=== PATIENT | male | born 1965 | race Hispanic/Latino ===

== ENCOUNTER 2017-06-14 11:49 | Emergency (ER) | payer MEDICARE ==
[2017-06-14 17:10] LABS: Basophils % (Auto) 0.2 % (0.0-1.8); Hematocrit 46.5 % (35.5-45.6); Hemoglobin 15.3 gm/dl (11.8-15.2); Lymphocytes # (Auto) 1.3 K/mm3 (1.2-5.4); Lymphocytes % (Auto) 10.1 % (13.4-35.0); Mean Corpuscular HGB Conc 33 % (32-34); Mean Corpuscular Hemoglobin 29 pg (28-32); Mean Corpuscular Volume 89 fl (84-94); Monocytes # (Auto) 0.9 K/mm3 (0.0-0.8); Monocytes % (Auto) 6.7 % (0.0-7.3); Platelet Count 282 K/mm3 (140-440); Red Cell Distribution Width 14.1 % (13.2-15.2)
[2017-06-14] MEDS ORDERED: SUBLIMAZE IV ONE ×2 (17:20→21:16)
[2017-06-14] MEDS ORDERED: ZOFRAN IV ONE ×2 (17:20→21:16)
[2017-06-14] MEDS ORDERED: NACL 0.9% 1000 ML 1,000 ML IV ONE (17:20)
[2017-06-14 17:24] LABS: BUN/Creatinine Ratio 13; Blood Urea Nitrogen 14 mg/dL (9-20); Calcium 9.2 mg/dL (8.4-10.2); Hemolysis Index 55
[2017-06-14 17:26] LABS: Alanine Aminotransferase 37 units/L (7-56); Albumin 4.5 g/dL (3.9-5); Lipase 20 units/L (13-60)
[2017-06-14 17:32] LABS: Bilirubin,Direct < 0.2 mg/dL (0-0.2)
[2017-06-14] MEDS ORDERED: MOTRIN PO ONE (17:48)
[2017-06-14 19:45] VITALS: BP 136/88
--- NOTE | 2017-06-14 20:37 | Cat Scan Report ---
FINAL REPORT EXAM: CT ABDOMEN PELVIS W CON HISTORY: abdominal pain TECHNIQUE: Axial images were performed from the lung bases to the pubic symphysis following IV contrast administration. Multiplanar reformats are performed on the acquisition scanner. Comparison: 10/07/2015 FINDINGS: There is mild bilateral basal atelectasis. There is a large paraumbilical hernia containing fat, previously measured up to 8.5 centimeters transversely. It currently now measures up to 12 centimeters transversely. Liver is mildly diffusely hypodense. There is normal enhancement and appearance of the spleen, pancreas, bilateral adrenal glands, and left kidney. There is mild bilateral right perinephric stranding and fullness of the right renal pelvis and ureter to the level of a 2.3 millimeter distal ureteral stone just proximal to the UVJ. Stomach is decompressed. There is no significant mesenteric or atherosclerotic aortic occlusive disease. There is a left posterior renal cortical exophytic cyst measuring up to 8 centimeters which appears simple. The colon is decompressed. The appendix is surgically absent. There is mild stranding of the anti mesenteric transverse colon margin deep to the hernia due to the herniation of the anti mesenteric margin fat. There is no abnormal obstructed appearing small bowel loop. Urinary bladder is minimally distended. Prostate is not enlarged. There is lower thoracic degenerative spondylosis. Delayed phase images demonstrate ill-defined right perinephric stranding without excretion of contrast. Normal excretion of left sided contrast. IMPRESSION: 2.3 millimeter distal right ureteral stone causing mild right hydroureteronephrosis and mild delay in contrast excretion. No definite forniceal rupture. Mild perinephric stranding. Mild stranding of the anti mesenteric transverse colon margin deep to the enlarging anterior abdominal wall/periumbilical 12.1 centimeter hernia due to the herniation of the anti mesenteric margin fat into the hernia. No definite bowel wall ischemia. Mild engorged vessels within the hernia sac.
--- NOTE | 2017-06-14 21:15 | Emergency Department Report ---
HPI - General Chief Complaint: Abdominal Pain Time Seen by Provider: 06/14/17 16:58 - HPI HPI: The patient is a 51-year-old male presents for evaluation of abdominal pain. The patient has a history of chronic hernia, and whom appears for evaluation of recurrence of abdominal pain. He reports severe mid abdominal pain for the past 5 hours since awakening this morning, 10/10 in severity, throbbing in quality, exacerbated with vomiting. He also reports associated nausea and one to 2 episodes of nonbilious, nonbloody vomiting. The patient denies fever, chills, night sweats, diarrhea, blood in the stool, dark tarry stool, dysuria, hematuria, flank pain, genital discharge, inability to pass flatus. ED Past Medical Hx - Past Medical History Hx Hypertension: Yes Hx Psychiatric Treatment: Yes - Social History Smoking Status: Never Smoker Substance Use Type: None - Medications Home Medications: Home Medications Medication Instructions Recorded Confirmed Last Taken Type Aspirin 81 mg PO DAILY 10/07/15 10/07/15 10/07/15 08:00 History Lisinopril [Zestril TAB] 20 mg PO QAM 10/07/15 10/07/15 10/07/15 08:00 History RisperDAL 1 mg PO QAM 10/07/15 10/07/15 10/07/15 08:00 History RisperDAL 2 mg PO QHS 10/07/15 10/07/15 10/06/15 21:00 History Wellbutrin 150 mg PO QAM 10/07/15 10/07/15 10/07/15 08:00 History cloNIDine 0.2 mg PO BID 10/07/15 10/07/15 10/07/15 08:00 History HYDROcodone/APAP 7.5-325 [[place] 1 each PO Q8HR PRN #14 tablet 06/14/17 Unknown Rx 7.5-325 mg TAB] Ondansetron [Zofran TAB] 4 mg PO Q8HR PRN #20 tablet 06/14/17 Unknown Rx ED Review of Systems ROS: Stated complaint: ABDOMINAL PAIN Other details as noted in HPI Constitutional: denies: fever ENT: denies: throat or neck pain Respiratory: denies: cough, shortness of breath Cardiovascular: denies: chest pain Endocrine: denies unexplained weight loss or gain Gastrointestinal: reports: abdominal pain, nausea Genitourinary: denies: dysuria Musculoskeletal: denies: leg swelling Skin: denies: rash Neurological: denies: headache Hematological/Lymphatic: denies: easy bleeding or easy bruising Psych: denies sadness or hopelessness Physical Exam - Physical Exam Vital Signs: Vital Signs 06/14/17 06/14/17 06/14/17 11:54 15:31 15:45 Temperature 97.6 F Pulse Rate 78 75 76 Respiratory 16 11 L 23 Rate Blood Pressure 191/132 153/97 153/97 O2 Sat by Pulse 98 99 94 Oximetry 06/14/17 06/14/17 06/14/17 16:00 16:15 16:31 Temperature Pulse Rate 70 77 71 Respiratory 20 15 12 Rate Blood Pressure 162/97 153/97 153/97 O2 Sat by Pulse 96 95 99 Oximetry 06/14/17 06/14/17 06/14/17 17:31 18:00 18:30 Temperature Pulse Rate 98 H 83 90 Respiratory 22 18 18 Rate Blood Pressure 153/97 154/97 149/99 O2 Sat by Pulse 92 90 90 Oximetry 06/14/17 06/14/17 06/14/17 18:45 19:00 19:15 Temperature Pulse Rate 85 83 86 Respiratory 18 19 21 Rate Blood Pressure 149/99 133/89 133/89 O2 Sat by Pulse 97 96 95 Oximetry 06/14/17 06/14/17 06/14/17 19:31 19:49 20:01 Temperature Pulse Rate 85 91 H 87 Respiratory 12 25 H 16 Rate Blood Pressure 136/88 136/88 136/88 O2 Sat by Pulse 98 Oximetry Physical Exam: General: well-nourished, well-developed, no acute distress Head: Normocephalic, atraumatic Eyes: normal sclera ENT: Mucous membranes are pale and dry Neck: trachea midline, neck supple, No neck stiffness, no cervical adenopathy Respiratory: Breath sounds equal bilaterally, no wheezing, rales, or rhonchi Cardio: S1 and S2 present, no murmurs, rubs, gallops, capillary refill is delayed Abdomen: Normoactive bowel sounds, soft abdomen, periumbilical hernia present, mild periumbilical tenderness to palpation present, hernia is reducible, no rigidity, no guarding or rebound tenderness Chest WALL/Back: No tenderness to palpation of the chest wall, no CVA tenderness with percussion Musc: No pitting edema Skin: No rash Neuro: no facial drooping, normal speech Psych: Normal affect ED Course Vital Signs 06/14/17 06/14/17 06/14/17 11:54 15:31 15:45 Temperature 97.6 F Pulse Rate 78 75 76 Respiratory 16 11 L 23 Rate Blood Pressure 191/132 153/97 153/97 O2 Sat by Pulse 98 99 94 Oximetry 06/14/17 06/14/17 06/14/17 16:00 16:15 16:31 Temperature Pulse Rate 70 77 71 Respiratory 20 15 12 Rate Blood Pressure 162/97 153/97 153/97 O2 Sat by Pulse 96 95 99 Oximetry 06/14/17 06/14/17 06/14/17 17:31 18:00 18:30 Temperature Pulse Rate 98 H 83 90 Respiratory 22 18 18 Rate Blood Pressure 153/97 154/97 149/99 O2 Sat by Pulse 92 90 90 Oximetry 06/14/17 06/14/17 06/14/17 18:45 19:00 19:15 Temperature Pulse Rate 85 83 86 Respiratory 18 19 21 Rate Blood Pressure 149/99 133/89 133/89 O2 Sat by Pulse 97 96 95 Oximetry 06/14/17 06/14/17 06/14/17 19:31 19:49 20:01 Temperature Pulse Rate 85 91 H 87 Respiratory 12 25 H 16 Rate Blood Pressure 136/88 136/88 136/88 O2 Sat by Pulse 98 Oximetry ED Medical Decision Making - Lab Data Result diagrams: 06/14/17 16:41 06/14/17 16:41 - Medical Decision Making The patient was seen and examined by myself. The patient is placed on a retort pre cooker and continuous pulse ox. On initial evaluation, the patient was found to be in no distress. Evaluation orders are placed. IV access is established and the patient is given 1 L normal saline fluid bolus and Zofran for nausea, and IV analgesic for pain. Lab results exhibited mildly elevated wBC of 13, and elevated hemoglobin and hematocrit, consistent with hemoconcentration, and otherwise lab results were not concerning including electrolytes, renal function, LFTs, lipase, and urinalysis. CT scan abdomen and pelvis exhibits right ureterolithiasis, 2 cm, and a 12 cm mesentery fat containing umbilical hernia, with mild chronic stranding of mesentery. CT scan was negative for bowel obstruction or strangulation of bowel. The on-call surgeon was contacted. She presents to the emergency department and evaluated the patient. She agreed that the patient's hernia is reducible. She reviewed CT scan of the abdomen and pelvis and submitted that findings are chronic and not consistent with acute incarceration or strangulation, and then the patient is stable for outpatient follow-up with her in her office on Friday. The patient was reevaluated and reported that their symptoms were markedly improved. The patient is stable for discharge with outpatient follow-up. The patient is given follow-up and return instructions. The patient expressed understanding and agreed with the plan. The patient is discharged in stable condition. Critical care attestation.: If time is entered above; I have spent that time in minutes in the direct care of this critically ill patient, excluding procedure time. ED Disposition Clinical Impression: Abdominal pain, acute, periumbilical, Hypertensive urgency, Umbilical hernia without obstruction or gangrene, Ureterolithiasis, Dehydration Disposition: TO HOME OR SELFCARE Is pt being admited?: Yes Does the pt Need Aspirin: Yes Condition: Fair Instructions: Kidney Stones (ED), Umbilical Hernia (ED), How to Strain Your Urine (ED), Hypertension (ED) Prescriptions: HYDROcodone/APAP 7.5-325 [[place] 7.5-325 mg TAB] 1 each PO Q8HR PRN #14 tablet PRN Reason: Pain Ondansetron [Zofran TAB] 4 mg PO Q8HR PRN #20 tablet PRN Reason: Nausea Referrals: ANTHONY LOZADA DO [Staff Physician] - 06/16/17 11:00 am SIMEON ANDRADE MD [Staff Physician] - 3-5 Days Time of Disposition: 21:26
[2017-06-14] MEDS ORDERED: APRESOLINE IV ONE (21:38)
[2017-06-14 22:34] LABS: Bilirubin,Urine NEG (Negative); Blood,Urine MOD (Negative); Color,Urine Yellow (Yellow); Nitrite,Urine NEG (Negative); Protein,Urine <15 mg/dL mg/dL (Negative); Urobilinogen,Urine < 2.0 mg/dL (<2.0)
--- NOTE | 2017-06-14 22:47 | Consultation ---
History of Present Illness Consult date: 06/14/17 Requesting physician: MARGARITA FERRIS Chief complaint: abd pain - History of present illness History of present illness: 51 yo M with hx of HTN, HLD presents from home with c/o abd pain that started at 9 am today. He states the pain was sharp and of sudden onset. The pain is located near his umbilicus. He states he has a known hx of umbilical hernia that has been present for over 2 years. He states he had nausea with a small amount white emesis this am (nonbloody/nonbilious) and again after the CT scan done in ER. He just recovered from the flu. He was tolerating a diet prior to this. He denies f/c, cp, sob, constipation or diarrhea. He is having normal BMs and flatus. He is currently not nauseated and feels hungry. The patient is a poor historian and asked me to look in his chart for his history. He also states that he takes NO meds. The patient has had a psych hx in the past and was hospitalized at [facility] for psychosis in 2016. He did present to this ER in 2016 for similar abd pain and was found to have umbilical hernia. He was to follow up with surgeon as outpatient for repair. Past History Past Medical History: hypertension, hyperlipidemia Past Surgical History: Other (scrotal abscess drainage) Social history: denies: smoking, alcohol abuse, prescription drug abuse Family history: no significant family history Medications and Allergies Allergies Allergy/AdvReac Type Severity Reaction Status Date / Time No Known Allergies Allergy Verified 06/14/17 11:54 Home Medications Medication Instructions Recorded Confirmed Last Taken Type Aspirin 81 mg PO DAILY 10/07/15 10/07/15 10/07/15 08:00 History Lisinopril [Zestril TAB] 20 mg PO QAM 10/07/15 10/07/15 10/07/15 08:00 History RisperDAL 1 mg PO QAM 10/07/15 10/07/15 10/07/15 08:00 History RisperDAL 2 mg PO QHS 10/07/15 10/07/15 10/06/15 21:00 History Wellbutrin 150 mg PO QAM 10/07/15 10/07/15 10/07/15 08:00 History cloNIDine 0.2 mg PO BID 10/07/15 10/07/15 10/07/15 08:00 History HYDROcodone/APAP 7.5-325 [[place] 1 each PO Q8HR PRN #14 tablet 06/14/17 Unknown Rx 7.5-325 mg TAB] Ondansetron [Zofran TAB] 4 mg PO Q8HR PRN #20 tablet 06/14/17 Unknown Rx Review of Systems All systems: negative (see hpi) Exam Vital Signs Temp Pulse Resp BP Pulse Ox 97.6 F 78 16 191/132 98 06/14/17 11:54 06/14/17 11:54 06/14/17 11:54 06/14/17 11:54 06/14/17 11:54 Narrative exam: Gen: AAOx3. NAD ENT: no scleral icterus or conjunctival pallor CV: S1, S2+ Resp: CTAB, no w/w/r Abd: soft, obese, NT, ND. umbilical hernia, soft, easily reducible, mildly TTP. NO skin changes. Ext: no c/c/e Results - Labs 06/14/17 16:41 06/14/17 16:41 Abnormal lab results 06/14/17 06/14/17 Range/Units 16:41 16:41 WBC 13.0 H (4.5-11.0) K/mm3 RBC 5.20 H (3.65-5.03) M/mm3 Hgb 15.3 H (11.8-15.2) gm/dl Hct 46.5 H (35.5-45.6) % Lymph % (Auto) 10.1 L (13.4-35.0) % [place] # 0.9 H (0.0-0.8) K/mm3 Seg Neutrophils % 83.0 H (40.0-70.0) % Seg Neutrophils # 10.7 H (1.8-7.7) K/mm3 Glucose 107 H (75-100) mg/dL Diabetes panel 06/14/17 06/14/17 Range/Units 16:41 16:41 Sodium 140 (137-145) mmol/L Potassium 4.8 (3.6-5.0) mmol/L Chloride 100.8 (98-107) mmol/L Carbon Dioxide 28 (22-30) mmol/L BUN 14 (9-20) mg/dL Creatinine 1.1 (0.8-1.5) mg/dL Glucose 107 H (75-100) mg/dL Calcium 9.2 (8.4-10.2) mg/dL AST 23 (5-40) units/L ALT 37 (7-56) units/L Alkaline Phosphatase 83 (35-129) units/L Total Protein 7.6 (6.3-8.2) g/dL Albumin 4.5 (3.9-5) g/dL Calcium panel 06/14/17 06/14/17 Range/Units 16:41 16:41 Calcium 9.2 (8.4-10.2) mg/dL Albumin 4.5 (3.9-5) g/dL Pituitary panel 06/14/17 Range/Units 16:41 Sodium 140 (137-145) mmol/L Potassium 4.8 (3.6-5.0) mmol/L Chloride 100.8 (98-107) mmol/L Carbon Dioxide 28 (22-30) mmol/L BUN 14 (9-20) mg/dL Creatinine 1.1 (0.8-1.5) mg/dL Glucose 107 H (75-100) mg/dL Calcium 9.2 (8.4-10.2) mg/dL Adrenal panel 06/14/17 06/14/17 Range/Units 16:41 16:41 Sodium 140 (137-145) mmol/L Potassium 4.8 (3.6-5.0) mmol/L Chloride 100.8 (98-107) mmol/L Carbon Dioxide 28 (22-30) mmol/L BUN 14 (9-20) mg/dL Creatinine 1.1 (0.8-1.5) mg/dL Glucose 107 H (75-100) mg/dL Calcium 9.2 (8.4-10.2) mg/dL Total Bilirubin 0.60 (0.1-1.2) mg/dL AST 23 (5-40) units/L ALT 37 (7-56) units/L Alkaline Phosphatase 83 (35-129) units/L Total Protein 7.6 (6.3-8.2) g/dL Albumin 4.5 (3.9-5) g/dL - Imaging CT scan - abdomen: report reviewed, image reviewed CT scan - pelvis: report reviewed, image reviewed Assessment and Plan 51 yo M with 1. reducible ventral hernia Plan: 1. I personally reviewed the CT scan images and compared to those from 2016. Although the fat contained in the hernia has increased in size, the hernia does not contain bowel and is otherwise unchanged. There are no signs of obstruction on CT. The contents of the hernia are chronically incarcerated and the hernia is easily reducible on exam. 2. start diet, if patient tolerates without emesis, may dc home 3. patient to follow up with me on Friday 06/16 at 11am in office. Will set up elective hernia repair. 4. Pt advised to return to ER if he has intractable abd pain, vomiting, if the hernia becomes hard and is not able to be pushed back in. 5. I discussed the plan with Dr. Ferris in ER Thank you for this consultation, please call with questions or concerns.
== END 2017-06-14 23:01 | disposition home or self-care (01) ==
LOC: ED 11:49
DX: I16.0 Hypertensive urgency (principal); K42.9 Umbilical hernia without obstruction or gangrene; I96 Gangrene, not elsewhere classified; N20.1 Calculus of ureter; E86.0 Dehydration
CPT/HCPCS: 36415; 74177; 80048; 80074; 81001; 82150; 83690; 85025; 96361; 96374; 96375; 96376; 99284; J2405; J3010; J7030; Q9967

== ENCOUNTER 2017-12-14 14:23 | Emergency (ER) | payer MEDICARE ==
[2017-12-14 15:30] LABS: Bilirubin,Urine NEG (Negative); Blood,Urine NEG (Negative); Color,Urine Yellow (Yellow); Mucus,Urine FEW /HPF; Protein,Urine <15 mg/dL mg/dL (Negative); Urobilinogen,Urine < 2.0 mg/dL (<2.0)
[2017-12-14 15:34] LABS: Basophils # (Auto) 0.1 K/mm3 (0.0-0.1); Basophils % (Auto) 0.5 % (0.0-1.8); Eosinophils # (Auto) 0.2 K/mm3 (0.0-0.4); Eosinophils % (Auto) 1.8 % (0.0-4.3); Hematocrit 46.2 % (35.5-45.6); Hemoglobin 15.6 gm/dl (11.8-15.2); Lymphocytes % (Auto) 19.4 % (13.4-35.0); Mean Corpuscular HGB Conc 34 % (32-34); Mean Corpuscular Hemoglobin 30 pg (28-32); Mean Corpuscular Volume 90 fl (84-94); Monocytes # (Auto) 0.7 K/mm3 (0.0-0.8); Monocytes % (Auto) 6.6 % (0.0-7.3); Platelet Count 253 K/mm3 (140-440); Red Blood Count 5.11 M/mm3 (3.65-5.03); Red Cell Distribution Width 13.9 % (13.2-15.2)
[2017-12-14 15:44] LABS: Amphetamine Screen,Urine PRESUMPTIVE NEGATIVE; Benzodiazepines Screen,Urine PRESUMPTIVE NEGATIVE; Cannabinoid Screen,Urine PRESUMPTIVE NEGATIVE; Cocaine Screen,Urine PRESUMPTIVE NEGATIVE; Methadone Screen,Urine PRESUMPTIVE NEGATIVE; Opiate Screen,Urine PRESUMPTIVE NEGATIVE
[2017-12-14 15:48] LABS: BUN/Creatinine Ratio 10; Blood Urea Nitrogen 8 mg/dL (9-20); Calcium 9.1 mg/dL (8.4-10.2); Hemolysis Index 0
[2017-12-14] MEDS ORDERED: CATAPRES PO ONE (20:57)
[2017-12-14] MEDS ORDERED: ALUM-MAG HYDROX-SIMETH 200-200-20MG/5ML PO PRN (20:58)
[2017-12-14] MEDS ORDERED: TYLENOL PO PRN (20:58)
[2017-12-14] MEDS ORDERED: MILK OF MAGNESIA PO PRN (20:58)
--- NOTE | 2017-12-14 20:59 | Emergency Department Report ---
HPI - General Chief Complaint: Psych Time Seen by Provider: 12/14/17 20:53 - HPI HPI: The patient is a 52-year-old male with a significant history of schizophrenia, who presents for evaluation of mental health. The patient reports 1 day of constant severe worsening that the FBI is after him, the foreign countries are monitoring him through a microchip placed in the back of his skull. The patient denies fever, headache, unexplained weight loss or weight gain, heat or cold intolerance, skin, hair, or nail changes, neuro deficits, homicidal ideations, or suicidal ideations. ED Past Medical Hx - Past Medical History Hx Hypertension: Yes Hx Psychiatric Treatment: Yes - Social History Smoking Status: Never Smoker - Medications Home Medications: Home Medications Medication Instructions Recorded Confirmed Last Taken Type Aspirin 81 mg PO DAILY 10/07/15 10/07/15 10/07/15 08:00 History Lisinopril [Zestril TAB] 20 mg PO QAM 10/07/15 10/07/15 10/07/15 08:00 History RisperDAL 1 mg PO QAM 10/07/15 10/07/15 10/07/15 08:00 History RisperDAL 2 mg PO QHS 10/07/15 10/07/15 10/06/15 21:00 History Wellbutrin 150 mg PO QAM 10/07/15 10/07/15 10/07/15 08:00 History cloNIDine 0.2 mg PO BID 10/07/15 10/07/15 10/07/15 08:00 History HYDROcodone/APAP 7.5-325 [[place] 1 each PO Q8HR PRN #14 tablet 06/14/17 Unknown Rx 7.5-325 mg TAB] Ondansetron [Zofran TAB] 4 mg PO Q8HR PRN #20 tablet 06/14/17 Unknown Rx ED Review of Systems ROS: Stated complaint: HEADACHE Other details as noted in HPI Constitutional: denies: fever ENT: denies: throat or neck pain Respiratory: denies: cough, shortness of breath Cardiovascular: denies: chest pain Endocrine: denies unexplained weight loss or gain Gastrointestinal: denies: abdominal pain, nausea Genitourinary: denies: dysuria Musculoskeletal: denies: leg swelling Skin: denies: rash Neurological: denies: headache Hematological/Lymphatic: denies: easy bleeding or easy bruising Psych: reports worrying Physical Exam - Physical Exam Vital Signs: Vital Signs 12/14/17 14:40 Temperature 98 F Pulse Rate 85 Respiratory 18 Rate Blood Pressure 164/114 O2 Sat by Pulse 96 Oximetry Physical Exam: General: well-nourished, well-developed, no acute distress Head: Normocephalic, atraumatic Eyes: normal sclera ENT: Mucous membranes are pink and moist Neck: trachea midline, neck supple, No neck stiffness, no cervical adenopathy Respiratory: Breath sounds equal bilaterally, no wheezing, rales, or rhonchi Cardio: S1 and S2 present, no murmurs, rubs, gallops, capillary refill is brisk Abdomen: Normoactive bowel sounds, soft abdomen, no rigidity, no guarding or rebound tenderness Musc: No pitting edema Skin: No rash Neuro: no facial drooping, normal speech Psych: Flat affect, delusional, disorganized thoughts, likely insight ED Course Vital Signs 12/14/17 14:40 Temperature 98 F Pulse Rate 85 Respiratory 18 Rate Blood Pressure 164/114 O2 Sat by Pulse 96 Oximetry ED Medical Decision Making - Lab Data Result diagrams: 12/14/17 15:21 12/14/17 15:21 - Medical Decision Making The patient was seen and examined by myself. The patient is placed on a special education supervisor and continuous pulse ox. On initial evaluation, the patient was found to be in no distress. Labs are obtained. Lab results are grossly unremarkable. The patient is medically clear. Mental health is consulted. Mental health evaluates the patient and agrees that the patient is exhibiting signs consistent with acute psychosis A 1013 is completed. The patient will be admitted to a psychiatric facility once bed placement is obtained. Critical care attestation.: If time is entered above; I have spent that time in minutes in the direct care of this critically ill patient, excluding procedure time. ED Disposition Clinical Impression: Acute psychosis Disposition: [id number]/TX-[id number] PSY HOSP/PSY UNIT Is pt being admited?: No Does the pt Need Aspirin: No Condition: Stable Referrals: PRIMARY CARE, [Primary Care Provider] - 3-5 Days Time of Disposition: 20:58
[2017-12-15] MEDS ORDERED: CATAPRES ONE (00:17)
[2017-12-15 01:47] VITALS: BP 133/76
--- NOTE | 2017-12-15 19:07 | Consultation ---
History of Present Illness - Reason for Consult Consult date: 12/15/17 Reason for consult: Mental Health Evaluation Requesting physician: MARGARITA TRUJILLO - Chief Complaint Chief complaint: "I have a spy patch on my neck" - History of Present Psychiatric Illness 52-year-old male presenting to the ER for bizarre behavior. Today the patient is calm and cooperative, but tangent during the assessment. He stated that he has a "spy patch" on his neck that the FBI planted. He stated after several months, the patch will absorb into his skin. He stated that the FBI is a "issue " that need to be resolved. The patient had to be redirected several times to keep him on topic. His thoughts were disorganized and not logical. He denies SI/ HI's and AVH's. He would not confirm or deny erratic sleep. He denies recreational drug use and alcohol consumption (etoh). Medications and Allergies Allergies Allergy/AdvReac Type Severity Reaction Status Date / Time No Known Allergies Allergy Verified 12/14/17 14:38 Home Medications Medication Instructions Recorded Confirmed Last Taken Type Aspirin 81 mg PO DAILY 10/07/15 12/15/17 10/07/15 08:00 History Lisinopril [Zestril TAB] 20 mg PO QAM 10/07/15 12/15/17 10/07/15 08:00 History RisperDAL 1 mg PO QAM 10/07/15 12/15/17 10/07/15 08:00 History RisperDAL 2 mg PO QHS 10/07/15 12/15/17 10/06/15 21:00 History Wellbutrin 150 mg PO QAM 10/07/15 12/15/17 10/07/15 08:00 History cloNIDine 0.2 mg PO BID 10/07/15 12/15/17 10/07/15 08:00 History HYDROcodone/APAP 7.5-325 [[place] 1 each PO Q8HR PRN #14 tablet 06/14/17 12/15/17 Unknown Rx 7.5-325 mg TAB] Ondansetron [Zofran TAB] 4 mg PO Q8HR PRN #20 tablet 06/14/17 12/15/17 Unknown Rx Past psychiatric history - Past Medical History Past Medical History: hypertension Past Surgical History: No surgical history - past Psychiatric treatment and history psychiatric treatment history: Several inpatient psy services. Denies a fam psy hx. - Social History Social history: Lives alone Mental Status Exam - Vital signs Last Vital Signs Temp 98.8 F 12/15/17 01:45 Pulse 81 12/15/17 01:45 Resp 18 12/15/17 01:45 BP 133/76 12/15/17 01:45 Pulse Ox 98 12/15/17 01:45 - Exam Narrative exam: MSE: Appearance: calm, cooperative Behavior: poor eye contact Speech: regular rate and tone Mood: "okay" Affect: congruent to mood Thought Process: tangential Thought Content: denies SI/HI's and AVH's, delusional Motor Activity: sitting up in bed Cognition: A/O x 3 Insight: poor Judgment: poor Results Result Diagrams: 12/14/17 15:21 12/14/17 15:21 All other labs normal. Assessment and Plan Assessment and plan: Impression: Unspecified Psychosis. Today the patient is calm and cooperative, but tangent during the assessment. UDS is negative. DDx: Schizophrenia, R/O Bipolar DO Recommendation/Plan: Continue 1013 with placement to [facility] today.
== END 2017-12-15 08:15 ==
LOC: ED 14:23
DX: F29 Unspecified psychosis not due to a substance or known physiological condition (principal); I10 Essential (primary) hypertension; Z79.82 Long term (current) use of aspirin
CPT/HCPCS: 36415; 80048; 80307; 81001; 85025; 99285; G0480; 80320